=== PATIENT | male | born 1995 | race African-American/Black ===

== ENCOUNTER 2017-02-03 23:42 | Emergency (ER) | payer MEDICAID ==
[~2017-02-03] VITALS: Ht 180.3 cm; Wt 61.0 kg
[2017-02-03 23:49] VITALS: BP 104/69
== END 2017-02-04 02:40 | disposition left against medical advice (07) ==
LOC: ER 23:43
DX: L29.8 Other pruritus (principal); Z53.21 Procedure and treatment not carried out due to patient leaving prior to being seen by health care provider